=== PATIENT | female | born 1980 | race American Indian/Alaskan Native ===

== ENCOUNTER 2019-07-19 11:00 | Emergency (ER) | payer SELFPAY ==
[2019-07-19 11:09] VITALS: BP 128/70
--- NOTE | 2019-07-19 11:11 | Emergency Department Report ---
- General Chief Complaint: Upper Respiratory Infection Stated Complaint: SINUS PRESSURE Time Seen by Provider: 07/19/19 11:06 Source: patient Mode of arrival: Ambulatory Limitations: No Limitations - History of Present Illness Initial Comments: pt presents to the ED with c/o sinus pressure that began two weeks ago. pt states she had a fever yesterday. states she has been having green/yellow mucus drainage. no sick contacts. associated intermittent ARREDONDO. states she had a cold a few weeks ago. no cough, no sore throat, no ear pain. no PMhx. no allergies to meds. LNMP: july 05 - Related Data Previous Rx's Medication Instructions Recorded Last Taken Type Amoxicillin/Potassium Clav 1 each PO BID 7 Days #14 tablet 07/19/19 Unknown Rx [Augmentin 875-125 Tablet] Allergies Allergy/AdvReac Type Severity Reaction Status Date / Time No Known Allergies Allergy Verified 07/19/19 11:07 ED Review of Systems ROS: Stated complaint: SINUS PRESSURE Other details as noted in HPI Comment: All other systems reviewed and negative ED Past Medical Hx - Past Medical History Previous Medical History?: No - Surgical History Past Surgical History?: No - Medications Home Medications: Home Medications Medication Instructions Recorded Confirmed Last Taken Type Amoxicillin/Potassium Clav 1 each PO BID 7 Days #14 tablet 07/19/19 Unknown Rx [Augmentin 875-125 Tablet] ED Physical Exam - General Limitations: No Limitations General appearance: alert, in no apparent distress - Head Head exam: Present: atraumatic, normocephalic - Eye Eye exam: Present: normal appearance - ENT ENT exam: Present: normal orophraynx, mucous membranes moist, TM's normal bilaterally, normal external ear exam, other (erythematous and purulent drainage in the bilateral nares, sinus TTP to the right maxillary and right frontal sinus, no TTP of the left sinuses) - Respiratory Respiratory exam: Present: normal lung sounds bilaterally. Absent: respiratory distress, wheezes, rales, rhonchi, stridor, chest wall tenderness, accessory muscle use, decreased breath sounds, prolonged expiratory - Cardiovascular Cardiovascular Exam: Present: regular rate, normal rhythm, normal heart sounds. Absent: systolic murmur, diastolic murmur, rubs, gallop - Neurological Exam Neurological exam: Present: alert, oriented X3 - Psychiatric Psychiatric exam: Present: normal affect, normal mood - Skin Skin exam: Present: warm, dry, intact ED Course Vital Signs 07/19/19 11:07 Temperature 98.9 F Pulse Rate 79 Respiratory 16 Rate Blood Pressure 128/70 O2 Sat by Pulse 97 Oximetry ED Medical Decision Making - Medical Decision Making pt presents to the ED with c/o sinus pressure that began two weeks ago. pt states she had a fever yesterday. states she has been having green/yellow mucus drainage. no sick contacts. associated intermittent ARREDONDO. states she had a cold a few weeks ago. no cough, no sore throat, no ear pain. no PMhx. no allergies to meds. LNMP: july 05. vitals are normal. on exam: erythematous and purulent drainage in the bilateral nares, sinus TTP to the right maxillary and right frontal sinus, no TTP of the left sinuses. examination consistent with si nusitis. pt given prescription for augmentin. advised pt to please take medication as prescribed to completion. may use over the counter nasal spray and humidifier. may use tylenol or ibuprofen for headache. follow up with a primary care doctor in the next 3 days for reevaluation. return to the emergency room for any new or worsening symptoms. Critical care attestation.: If time is entered above; I have spent that time in minutes in the direct care of this critically ill patient, excluding procedure time. ED Disposition Clinical Impression: Sinusitis Qualifiers: Sinusitis location: maxillary Chronicity: acute Recurrence: non-recurrent Qualified Code(s): J01.00 - Acute maxillary sinusitis, unspecified Disposition: -01 TO HOME OR SELFCARE Is pt being admited?: No Does the pt Need Aspirin: No Condition: Stable Instructions: Sinusitis (ED) Additional Instructions: please take medication as prescribed to completion. may use over the counter nasal spray and humidifier. may use tylenol or ibuprofen for headache. follow up with a primary care doctor in the next 3 days for reevaluation. return to the emergency room for any new or worsening symptoms. Prescriptions: Amoxicillin/Potassium Clav [Augmentin 875-125 Tablet] 1 each PO BID 7 Days #14 tablet Referrals: TOREY NORMAN MD [Primary Care Provider] - 2-3 Days Time of Disposition: 11:16 Print Language: MACEDONIAN
== END 2019-07-19 11:58 | disposition home or self-care (01) ==
LOC: EDBD → EDSEX → ED 11:00
DX: J01.00 Acute maxillary sinusitis, unspecified (principal)
CPT/HCPCS: 99282